=== PATIENT | male | born 1970 | race Caucasian/White ===

== ENCOUNTER → 2017-07-27 | Outpatient (CLI) | payer BC | END | disposition home or self-care (01) | LOC: CDC 14:04 | DX: Z01.810 Encounter for preprocedural cardiovascular examination (principal); L92.3 Foreign body granuloma of the skin and subcutaneous tissue; I45.4 Nonspecific intraventricular block | CPT/HCPCS: 93000 ==

== ENCOUNTER 2017-08-06 09:31 | Day surgery (SDC) | payer BC ==
[~2017-08-06] VITALS: Ht 182.9 cm; Wt 125.0 kg
[~2017-08-06 09:31] MED LIST: ASPIR 8181 M1 PO; GLUCOPHAGE500 MG PO; LEXAPRO20 MG PO; LIPITOR40 MG PO; ZESTRIL40 MG PO
[2017-08-06 11:16] VITALS: BP 132/90
[2017-08-06] MEDS ORDERED: ULTRAM50 MG PO (13:55)
[2017-08-06 15:25] VITALS: BP 112/67
[2017-08-06 16:25] VITALS: BP 135/75
== END 2017-08-06 16:30 | disposition home or self-care (01) ==
LOC: SDC 09:31
PROVIDERS: Surgery
PROC: 0JB80ZZ Excision of Abdomen Subcutaneous Tissue and Fascia, Open Approach (ICD-10-PCS; principal; 2017-08-06)
DX: T81.89XA Other complications of procedures, not elsewhere classified, initial encounter (principal); L76.82 Other postprocedural complications of skin and subcutaneous tissue; L92.3 Foreign body granuloma of the skin and subcutaneous tissue; Z18.89 Other specified retained foreign body fragments; M62.08 Separation of muscle (nontraumatic), other site; E11.9 Type 2 diabetes mellitus without complications; I10 Essential (primary) hypertension; K76.0 Fatty (change of) liver, not elsewhere classified; Z79.84 Long term (current) use of oral hypoglycemic drugs; F17.220 Nicotine dependence, chewing tobacco, uncomplicated
CPT/HCPCS: 82948; J0131; J0690; J2250; J3010